=== PATIENT | female | born 1975 | race Caucasian/White ===

== ENCOUNTER 2020-10-10 07:36 | Outpatient (CLI) | payer OTHER, SELFPAY ==
--- NOTE | 2020-10-10 | ECHO_ITS ---
Patient Info Name: Amalia Naranjo Age: 45 years : 1975 Gender: Female Ht: 61 in Wt: 140 lbs BSA: 1.67 m2 HR: 56 bpm BP: 114 / 82 mmHg Technical Quality: Good Exam Date: 10/10/2020 8:28 AM Exam Location: [facility] Patient Status: Outpatient Admit Date: 10/10/2020 Staff Ordering Physician: HarshilaDmian MD Soc Analyst: Fercho Cai, RATNA, RT Attending Provider: HarshilDamian MD Exam Type: CA echo doppler color flow Study Info Indications R55 - Syncope and collapse Complete two-dimensional, color flow and Doppler transthoracic echocardiogram is performed. Summary 1. Complete two-dimensional, color flow and Doppler transthoracic echocardiogram is performed. 2. Left ventricular chamber dimension is normal. 3. Left ventricular systolic function is normal, estimated at 60-65%. 4. The left ventricular diastolic function is normal. 5. E/e' 4 is not elevated. 6. Global longitudinal strain is normal at -18.7%. 7. There is mild to moderate tricuspid valve regurgitation. 8. No pulmonary hypertension, estimated pulmonary arterial systolic pressure is 25 mmHg. Left Ventricle E/e' 4 is not elevated. Global longitudinal strain is normal at -18.7%. Left ventricular chamber dimension is normal. Left ventricular systolic function is normal, estimated at 60-65%. The left ventricular diastolic function is normal. Right Ventricle Right ventricular chamber dimension is normal. Right ventricular systolic function is normal. Left Atria Left atrial chamber dimension is normal. Right Atria Right atrial chamber dimension is normal. Aortic Valve The aortic valve is trileaflet. There is no aortic valve stenosis. There is no aortic valve regurgitation. Pulmonic Valve There is no pulmonic regurgitation. Mitral Valve There is no mitral valve stenosis. There is no mitral valve regurgitation. Tricuspid Valve There is mild to moderate tricuspid valve regurgitation. No pulmonary hypertension, estimated pulmonary arterial systolic pressure is 25 mmHg. Pericardium/Pleural There is no pericardial effusion. Inferior Vena Cava Normal inferior vena cava with >50% collapse upon inspiration consistent with normal right atrial pressure, 5 mmHg. Aorta The aortic root size at the sinus of Valsalva is normal. Left Ventricular Outflow Tract Name Value Normal LVOT 2D LVOT Diameter 2.1 cm LVOT Doppler LVOT Peak Gradient 4 mmHg LVOT Mean Gradient 2 mmHg LVOT VTI 20 cm LVOT VTI/AV VTI Ratio 0.9 LVOT Stroke Volume 68 ml LVOT CO 3.4 l/min LVOT CI 2.1 l/min/m2 Mitral Valve Name Value Normal MV Doppler MV Decel [place]
[2020-10-10 08:16] LABS: Eosinophils Percent Auto 1.3 % (0-4.4); Hematocrit 40.3 % (37.0-47.0); Hemoglobin 13.3 g/dL (12.0-15.0); Immature Granulocyte Absolute 0.01 K/mm3 (0.00-0.031); Immature Granulocyte Percent A 0.3 % (0-0.5); Lymphocytes Percent Auto 36.3 % (18.3-44.2); Mean Corpuscular Hemoglobin 30.3 pg (26-34); Mean Corpuscular Volume 91.8 fl (80-100); Mean Platelet Volume 10.8 fl (7.4-10.4); Monocytes Absolute Auto 0.3 K/mm3 (0.1-0.6); Monocytes Percent Auto 10.2 % (2.6-8.5); Neutrophils Absolute Auto 1.5 K/mm3 (1.3-6.7); Neutrophils Percent Auto 50.9 % (45.5-73.1); Platelet Count Result 195 k/mm3 (150-375); Red Blood Count 4.39 M/mm3 (4.2-5.4); Red Cell Distribution Width 12.1 % (11.5-14.5)
[2020-10-10 08:18] LABS: Alanine Aminotransferase 13 U/L (4-35); Albumin Level 4.1 g/dL (3.5-5.1); Alkaline Phosphatase 37 U/L (38-126); Anion Gap 7 mmol/L (8-16); Aspartate Amino Transferase 21 U/L (14-36); Bilirubin,Total 0.6 mg/dL (0.2-1.3); Blood Urea Nitrogen 18 mg/dL (7-17); Calcium 9.4 mg/dL (8.4-10.2); Carbon Dioxide 30 mmol/L (22-30); Chloride 102 mmol/L (98-107); Cholesterol 161 mg/dL (0-200); Estimated Glomerular Filt Rate > 60; Glucose 92 mg/dL (65-105); HDL Direct 65 mg/dL; Potassium 4.5 mmol/L (3.4-5.0); Sodium 139 mmol/L (137-145); Triglycerides 61 mg/dL (<150)
[2020-10-10 08:28] LABS: LDL Cholesterol Direct 72 mg/dL
[2020-10-15 07:05] LABS: Triiodothyronine T3 Free 3.1 pg/mL (2.3-4.2)
== END 2020-10-10 07:37 | disposition home or self-care (01) ==
PROVIDERS: PCP Internal Medicine; Visit Provider Internal Medicine
DX: R55 Syncope and collapse (principal); R53.83 Other fatigue; I36.1 Nonrheumatic tricuspid (valve) insufficiency
CPT/HCPCS: 36415; 80053; 80061; 84439; 84443; 84481; 85025; 93306

== ENCOUNTER 2024-05-01 08:36 | Outpatient (CLI) | payer OTHER, SELFPAY ==
--- NOTE | ~2024-05-01 | CT_ITS ---
EXAMINATION: CT pelvis wo con DATE: 05/01/2024 08:54 INDICATION: Pain in sacrum. Low back pain. TECHNIQUE: Computed tomography (CT) of the pelvis was performed without intravenous contrast. Automat ed exposure control and iterative reconstruction technique were employed. The dose-length product was 356.66 mGy-cm. COMPARISON: None FINDINGS: There are no pathologically enlarged lymph nodes. There is no ascites. There are chronic bi lateral L5 pars defects. There is 3 mm anterolisthesis of L5 on S1. There is mild lumbar spondylosis. There is moderate osteoarthritis of the sacroiliac joints. There is mild osteoarthritis of the hips. Osseous pubis is noted. IMPRESSION: 1. Chronic bilateral L5 pars defects with grade 1 anterolisthesis of L5 on S1. 2. Polyarticular osteoarthritis. Reviewed, dictated and finalized at location A.
== END 2024-05-01 08:37 ==
PROVIDERS: PCP Internal Medicine; Visit Provider Internal Medicine
DX: M54.50 Low back pain, unspecified (principal); M53.3 Sacrococcygeal disorders, not elsewhere classified
CPT/HCPCS: 72192

== ENCOUNTER 2024-08-15 10:48 | Outpatient (CLI) | payer OTHER, SELFPAY ==
--- NOTE | ~2024-08-15 | XR_ITS ---
Lumbosacral Spine: AP and lateral views Clinical History: Pain Findings: The normal lordotic curve is maintained. The vertebral bodies and posterior elements are i ntact. There is moderate degenerative disc narrowing at L5-S1. There are mild facet joint degenerativ e changes.. The sacroiliac joints are normally outlined. Impression: [id number] degenerative spondylosis, especially the lower lumbar spine. Reviewed, dictated and finalized at location M. Impression: [id number] degenerative spondylosis, especially the lower lumbar spine.
== END 2024-08-15 10:49 | disposition home or self-care (01) ==
LOC: MICIMG 10:53
PROVIDERS: PCP Internal Medicine; Visit Provider Pain Medicine Pain Medicine
DX: M43.06 Spondylolysis, lumbar region (principal)
CPT/HCPCS: 72100